=== PATIENT | female | born 1975 | race Caucasian/White ===

== ENCOUNTER 2017-11-20 07:21 | Emergency (ER) | payer OTHER ==
[2017-11-20 07:25] VITALS: TEMP 36.4; Ht 160 cm
[2017-11-20] MEDS ORDERED: MoRPHine SULFATE 4 MG/ML 1 ML CARP\\VIAL IV STA (07:54)
[2017-11-20] MEDS ORDERED: ONDANSETRON INJ 2 MG/ML 2 ML VIAL IV STA ×2 (07:54→08:50)
[2017-11-20] MEDS ORDERED: SODIUM CHLORIDE 0.9% 1000ML 1,000 ML IV STA (07:54)
[2017-11-20] MEDS ORDERED: MoRPHine SULFATE 4 MG/ML 1 ML CARP\\VIAL IV PRN (08:00)
[2017-11-20] MEDS ORDERED: OPTIRAY 320 IV PRN (08:15)
[2017-11-20 08:51] LABS: BASO % 0.5 %; BASO ABS # 0.04 K/uL (0-0.2); EOS % 2.9 %; EOS ABS # 0.23 K/uL (0-0.5); HEMATOCRIT 31.8 % (37-47); HEMOGLOBIN 9.5 g/dL (12.0-16.0); IG# 0.02 K/uL (0.00-0.02); LYMPH % 28.6 %; LYMPH ABS # 2.23 K/uL (1.2-3.4); MEAN CELL VOLUME 76.4 fL (80-100); MEAN CORPUSCULAR HEMOGLOBIN 22.8 pg (25-34); MEAN CORPUSCULAR HGB CONC 29.9 g/dl (32-36); MEAN PLATELET VOLUME 10.2 fL (7.4-10.4); MONO % 6.9 %; MONO ABS # 0.54 K/uL (0.11-0.59); NEUT % 60.8 %; NEUT ABS # 4.74 K/uL (1.4-6.5); PLATELET COUNT 269 K/uL (130-400); RED CELL DISTRIBUTION WIDTH CV 15.4 % (11.5-14.5)
[2017-11-20 09:02] LABS: PTT PATIENT 23.2 SECONDS (21.0-31.0)
[2017-11-20 09:10] LABS: ALBUMIN 3.4 gm/dl (3.4-5.0); ALT/SGPT 15 U/L (12-78); BLOOD UREA NITROGEN 7 mg/dl (7-18); CALCIUM 8.6 mg/dl (8.5-10.1); CARBON DIOXIDE 26 mmol/L (21-32); CREATININE 0.82 mg/dl (0.60-1.20); GLUCOSE 112 mg/dl (70-99); LIPASE 147 U/L (73-393); POTASSIUM 4.2 mmol/L (3.5-5.1); SODIUM 140 mmol/L (136-145)
[2017-11-20 09:13] LABS: ALKALINE PHOSPHATASE 64 U/L (45-117); AST/SGOT 10 U/L (15-37); TOTAL PROTEIN 6.9 gm/dl (6.4-8.2)
--- NOTE | 2017-11-20 10:13 | DIAGNOSTIC IMAGING REPORT ---
APPENDIX ULTRASOUND HISTORY: Right lower quadrant abdominal pain. COMPARISON: None. FINDINGS: Transabdominal scanning of the right lower quadrant was performed. The appendix was not identified. There are no fluid collections or masses within the right lower quadrant. IMPRESSION: Nonvisualization of the appendix. If persistent clinical suspicion for acute appendicitis, a CT is recommended. Electronically signed by: Arsenio De Leon M.D. 11/20/2017 10:11 AM Dictated Date/Time: 11/20/2017 10:11 AM
--- NOTE | 2017-11-20 10:13 | DIAGNOSTIC IMAGING REPORT ---
RENAL ULTRASOUND CLINICAL HISTORY: Right lower quadrant/right flank pain. COMPARISON STUDY: None. TECHNIQUE: Sonography of the kidneys and the urinary bladder was performed. FINDINGS: The right kidney measures 10.3 cm in maximal dimension and the left measures 10.6 cm. There is no hydronephrosis. Renal echogenicity, size and cortical thickness are normal. Both ureteral jets were identified. No calculi are identified by sonography. IMPRESSION: Normal renal ultrasound. No hydronephrosis. Electronically signed by: Arsenio De Leon M.D. 11/20/2017 10:12 AM Dictated Date/Time: 11/20/2017 10:12 AM
--- NOTE | 2017-11-20 10:44 | DIAGNOSTIC IMAGING REPORT ---
PELVIC ULTRASOUND CLINICAL HISTORY: Right lower quadrant/right flank pain. COMPARISON STUDY: None. TECHNIQUE: Transabdominal and transvaginal sonography of the pelvis was performed. FINDINGS: The uterus measures 7.4 x 4.5 x 3.1 cm. Endometrium measures 1 cm in thickness. The right ovary measures 3.1 x 2.1 x 2.2 cm and the left ovary measures 3.3 x 2.8 x 1.5 cm. There is color flow within each ovary. There may be slight increased number of peripheral follicles within the right ovary. There is no free fluid. IMPRESSION: Unremarkable pelvic ultrasound. Electronically signed by: Arsenio De Leon M.D. 11/20/2017 10:43 AM Dictated Date/Time: 11/20/2017 10:42 AM
--- NOTE | 2017-11-20 11:31 | DIAGNOSTIC IMAGING REPORT ---
CT OF THE ABDOMEN AND PELVIS WITH CONTRAST CLINICAL HISTORY: Abdominal pain. COMPARISON STUDY: Right lower quadrant ultrasound, renal ultrasound and pelvic ultrasound performed earlier today. TECHNIQUE: Following IV administration of 93 mL of Optiray-320, axial images of the abdomen and pelvis were obtained from the lung bases to the proximal femurs. Images were reviewed in the axial, sagittal, and coronal planes. IV contrast was administered without complication. A dose lowering technique was utilized adhering to the principles of ALARA. Oral contrast was administered. CT DOSE: 1394.84 mGy.cm FINDINGS: A few hepatic cysts are noted, the largest of which is within the lateral segment, measuring 2.2 cm. This may contain a thin septation. A 3.4 cm hypodense segment 6 lesion has nodular peripheral enhancement and is consistent with a hemangioma. The spleen, adrenal glands, kidneys and pancreas are normal. There is no evidence for a bowel obstruction. The appendix is normal. No hydronephrosis is present. There is no biliary ductal dilatation status post cholecystectomy. The ovaries are not enlarged. There are no suspicious osseous lesions. IMPRESSION: 1. No acute process within the abdomen or pelvis. Normal appendix. 2. No bowel obstruction. 3. 3.4 cm right hepatic lobe hemangioma. Several hepatic cysts. Electronically signed by: Arsenio De Leon M.D. 11/20/2017 11:29 AM Dictated Date/Time: 11/20/2017 11:22 AM
[2017-11-20] MEDS ORDERED: ONDA4TAB10 SL (11:59)
[2017-11-20] MEDS ORDERED: OXYC1TAB3 PO (11:59)
[2017-11-20] MEDS ORDERED: HYDROmorphone INJ 0.5 MG/0.5 ML SYR IV STA (12:00)
[2017-11-20 12:36] VITALS: BP 134/79; PULSE 78; O2SAT 98
--- NOTE | 2017-11-20 17:23 | EMERGENCY ROOM VISIT NOTE ---
History First contact with patient: 07:32 Chief Complaint: ABDOMINAL PAIN Stated Complaint: SEVERE ABD PAIN,NAUSEA History of Present Illness The patient is a 42 year old female who presents to the Emergency Room with complaints of lower central/right back, flank and right lower quadrant abdominal pain. The patient reports that she has had worsening discomfort for the past 2 days. Her reports that she was complaining of LEFT lower back pain last weekend during menstruation. She currently denies any left abdomen or left lower back pain. She reports feeling bloated, stating that her pants that she used to wear no longer fit. The patient did try some laxatives last night, and now has diarrhea. The laxatives only provided mild relief of her discomfort. She reports worsening pain with ambulation. She felt every bump while being transported to the emergency department this morning. The patient has a history of polycystic ovarian syndrome and endometriosis. The patient did have exploratory laparoscopy and 17 years of age when she was diagnosed with endometriosis. She also had a colonoscopy in 2002 with history of left lower quadrant abdominal pain. She reports that the colonoscopy was otherwise unremarkable. The patient is status post cholecystectomy. The patient denies . The patient currently rates her discomfort a 6 out of 10, and describes her pain now as a mostly constant pain with sharp pains in the previously described distribution with any movement. The patient has had nausea without vomiting. She has also had chills for the past 24 hours, but has not had an increased oral temperature/fever at home. Review of Systems HEENT: Denies dizziness, visual problems, hearing loss, tinnitus. Denies difficulty swallowing or oral lesions. PULMONARY: Denies cough, shortness of breath, sputum production or hemoptysis. CARDIOVASCULAR: Denies chest pain, palpitations, dyspnea on exertion, orthopnea or peripheral edema. GASTROINTESTINAL: See history of present illness. The patient denies bloody stool or mucus stools. GENITOURINARY: Denies dysuria, frequency, urgency or nocturia. NEUROLOGIC: Denies history of epilepsy, CVA, TIA or chronic headaches. MUSCULOSKELETAL: Denies history of joint tenderness/swelling. SKIN: Denies rashes or lesions. PSYCHIATRIC: Denies history of depression or mental illness. ENDOCRINE: Denies history of diabetes or thyroid disorders. Past Medical/Surgical History Medical Problems: (1) Bronchitis (2) Endometriosis (3) Endometriosis determined by laparoscopy (4) Peptic ulcer (5) Pneumonia (6) Polycystic ovarian syndrome Surgical Problems: (1) History of cholecystectomy (2) Status post reconstruction of anterior cruciate ligament Family History FH: cancer FH: diabetes mellitus FH: gallbladder disease FH: hypertension FH: kidney disease Social History Smoking Status: Never Smoker Alcohol Use: occasionally Marital Status: Occupation Status: employed Current/Historical Medications Scheduled Ondasetron Odt (Zofran Odt), 4 MG SL Q6H Scheduled PRN Oxycodone Ir (Roxicodone Ir), 1-2 TAB PO Q4H PRN for Pain Physical Exam Vital Signs Date Time Temp Pulse Resp B/P (MAP) Pulse Ox O2 Delivery O2 Flow Rate FiO2 11/20/17 12:36 78 18 134/79 98 11/20/17 10:46 71 18 120/63 98 Room Air 11/20/17 09:05 69 20 118/83 100 Room Air 11/20/17 07:25 36.4 87 18 130/88 98 Room Air Physical Exam CONSTITUTIONAL: Healthy and well nourished. Alert and oriented X 3 with positive affect. Patient appears in mild discomfort from pain. HEENT: Normocephalic, atraumatic. Pupils equal, round and reactive. No scleral icterus or conjunctival injection/pallor. NECK: Full active range of motion without discomfort. RESPIRATORY: Clear to auscultation bilaterally with no wheezing, crackles, rhonchi or stridor. CARDIOVASCULAR: Regular rate and rhythm with no murmurs, rubs or gallops. GASTROINTESTINAL: Bowel sounds present in all quadrants. Patient has a positive McBurney's point tenderness with mildly positive Rovsing sign. Positive heel tap. Positive obturator sign. Negative CVA tenderness. No abdominal rigidity, guarding or rebound. MUSCULOSKELETAL: Full range of motion of all joints without discomfort. INTEGUMENTARY: No rash or other significant dermatologic conditions noted. HEMATOLOGIC: No ecchymosis or petechiae noted. NEUROLOGIC: No focal neurologic deficits noted. Medical Decision & Procedures ER Provider Diagnostic Interpretation: Pelvic ultrasound does not show any obvious ovarian cysts/torsion or other acute intrapelvic findings. Radiologist report is as follows: PELVIC ULTRASOUND CLINICAL HISTORY: Right lower quadrant/right flank pain. COMPARISON STUDY: None. TECHNIQUE: Transabdominal and transvaginal sonography of the pelvis was performed. FINDINGS: The uterus measures 7.4 x 4.5 x 3.1 cm. Endometrium measures 1 cm in thickness. The right ovary measures 3.1 x 2.1 x 2.2 cm and the left ovary measures 3.3 x 2.8 x 1.5 cm. There is color flow within each ovary. There may be slight increased number of peripheral follicles within the right ovary. There is no free fluid. IMPRESSION: Unremarkable pelvic ultrasound. Retroperitoneal ultrasound RENAL ULTRASOUND CLINICAL HISTORY: Right lower quadrant/right flank pain. COMPARISON STUDY: None. TECHNIQUE: Sonography of the kidneys and the urinary bladder was performed. FINDINGS: The right kidney measures 10.3 cm in maximal dimension and the left measures 10.6 cm. There is no hydronephrosis. Renal echogenicity, size and cortical thickness are normal. Both ureteral jets were identified. No calculi are identified by sonography. IMPRESSION: Normal renal ultrasound. No hydronephrosis. Ultrasound of the appendix was not able to identify the appendix. Radiologist report is as follows: APPENDIX ULTRASOUND HISTORY: Right lower quadrant abdominal pain. COMPARISON: None. FINDINGS: Transabdominal scanning of the right lower quadrant was performed. The appendix was not identified. There are no fluid collections or masses within the right lower quadrant. IMPRESSION: Nonvisualization of the appendix. If persistent clinical suspicion for acute appendicitis, a CT is recommended. Enhanced CT of the abdomen and pelvis does not show any evidence for acute appendicitis, latest, bowel obstruction, diverticulitis or other emergent findings. Radiologist report is as follows: CT OF THE ABDOMEN AND PELVIS WITH CONTRAST CLINICAL HISTORY: Abdominal pain. COMPARISON STUDY: Right lower quadrant ultrasound, renal ultrasound and pelvic ultrasound performed earlier today. TECHNIQUE: Following IV administration of 93 mL of Optiray-320, axial images of the abdomen and pelvis were obtained from the lung bases to the proximal femurs. Images were reviewed in the axial, sagittal, and coronal planes. IV contrast was administered without complication. A dose lowering technique was utilized adhering to the principles of ALARA. Oral contrast was administered. CT DOSE: 1394.84 mGy.cm FINDINGS: A few hepatic cysts are noted, the largest of which is within the lateral segment, measuring 2.2 cm. This may contain a thin septation. A 3.4 cm hypodense segment 6 lesion has nodular peripheral enhancement and is consistent with a hemangioma. The spleen, adrenal glands, kidneys and pancreas are normal. There is no evidence for a bowel obstruction. The appendix is normal. No hydronephrosis is present. There is no biliary ductal dilatation status post cholecystectomy. The ovaries are not enlarged. There are no suspicious osseous lesions. IMPRESSION: 1. No acute process within the abdomen or pelvis. Normal appendix. 2. No bowel obstruction. 3. 3.4 cm right hepatic lobe hemangioma. Several hepatic cysts. Laboratory Results 11/20/17 08:34 Red Blood Count 4.16, Mean Corpuscular Volume 76.4, Mean Corpuscular Hemoglobin 22.8, Mean Corpuscular Hemoglobin Concent 29.9, Mean Platelet Volume 10.2, Neutrophils (%) (Auto) 60.8, Lymphocytes (%) (Auto) 28.6, Monocytes (%) (Auto) 6.9, Eosinophils (%) (Auto) 2.9, Basophils (%) (Auto) 0.5, Neutrophils # (Auto) 4.74, Lymphocytes # (Auto) 2.23, Monocytes # (Auto) 0.54, Eosinophils # (Auto) 0.23, Basophils # (Auto) 0.04 11/20/17 08:34 Test 11/20/17 00:00 11/20/17 08:34 Urine Color YELLOW Urine Appearance CLEAR (CLEAR) Urine pH 5.0 (4.5-7.5) Urine Specific [place] 1.013 (1.000-1.030) Urine Protein NEG (NEG) Urine Glucose (UA) NEG (NEG) Urine Ketones NEG (NEG) Urine Occult Blood NEG (NEG) Urine Nitrite NEG (NEG) Urine Bilirubin NEG (NEG) Urine Urobilinogen NEG (NEG) Urine Leukocyte Esterase NEG (NEG) Urine Test NEG (NEG) White Blood Count 7.80 K/uL (4.8-10.8) Red Blood Count 4.16 M/uL (4.2-5.4) Hemoglobin 9.5 g/dL (12.0-16.0) Hematocrit 31.8 % (37-47) Mean Corpuscular Volume 76.4 fL (80-100) Mean Corpuscular Hemoglobin 22.8 pg (25-34) Mean Corpuscular Hemoglobin Concent 29.9 g/dl (32-36) Platelet Count 269 K/uL (130-400) Mean Platelet Volume 10.2 fL (7.4-10.4) Neutrophils (%) (Auto) 60.8 % Lymphocytes (%) (Auto) 28.6 % Monocytes (%) (Auto) 6.9 % Eosinophils (%) (Auto) 2.9 % Basophils (%) (Auto) 0.5 % Neutrophils # (Auto) 4.74 K/uL (1.4-6.5) Lymphocytes # (Auto) 2.23 K/uL (1.2-3.4) Monocytes # (Auto) 0.54 K/uL (0.11-0.59) Eosinophils # (Auto) 0.23 K/uL (0-0.5) Basophils # (Auto) 0.04 K/uL (0-0.2) RDW Standard Deviation 43.0 fL (36.4-46.3) RDW Coefficient of Variation 15.4 % (11.5-14.5) Immature Granulocyte % (Auto) 0.3 % Immature Granulocyte # (Auto) 0.02 K/uL (0.00-0.02) Prothrombin Time 10.7 SECONDS (9.0-12.0) Prothromb Time International Ratio 1.0 (0.9-1.1) Activated Partial Thromboplast Time 23.2 SECONDS (21.0-31.0) Partial Thromboplastin Ratio 0.9 Anion Gap 6.0 mmol/L (3-11) Estimated GFR () 100.9 Estimated GFR (Non- 87.0 BUN/Creatinine Ratio 8.9 (10-20) Calcium Level 8.6 mg/dl (8.5-10.1) Total Bilirubin 0.4 mg/dl (0.2-1) Direct Bilirubin < 0.1 mg/dl (0-0.2) Aspartate Amino Transf (AST/SGOT) 10 U/L (15-37) Alanine Aminotransferase (ALT/SGPT) 15 U/L (12-78) Alkaline Phosphatase 64 U/L (45-117) Total Protein 6.9 gm/dl (6.4-8.2) Albumin 3.4 gm/dl (3.4-5.0) Lipase 147 U/L (73-393) The above labs were reviewed. Hemoglobin is 9.5, otherwise remaining labs were otherwise reviewed and grossly normal. Medications Administered Medications (Trade) Dose Ordered Sig/Trudi Route Start Time Stop Time Status Last Admin Dose Admin Morphine Sulfate (MoRPHine SULFATE INJ) 4 mg Q30M PRN IV 11/20/17 08:00 11/20/17 13:56 DC 11/20/17 11:12 4 MG Sodium Chloride 1,000 ml @ 999 mls/hr Q1H1M STAT IV 11/20/17 07:54 11/20/17 08:54 DC 11/20/17 08:12 999 MLS/HR Ondansetron HCl (Zofran Inj) 4 mg NOW STAT IV 11/20/17 07:54 11/20/17 07:59 DC 11/20/17 08:12 4 MG Morphine Sulfate (MoRPHine SULFATE INJ) 4 mg NOW STAT IV 11/20/17 07:54 11/20/17 07:59 DC 11/20/17 08:12 4 MG Ondansetron HCl (Zofran Inj) 4 mg NOW STAT IV 11/20/17 08:50 11/20/17 08:51 DC 11/20/17 09:05 4 MG Hydromorphone HCl (Dilaudid Inj) 0.5 mg NOW STAT IV 11/20/17 12:00 11/20/17 12:01 DC 11/20/17 12:21 0.5 MG ED Course Patient history and physical exam were performed. Nurse's notes were reviewed. Vital signs were reviewed and were normal. IV access was established, and labs were drawn. The patient was hydrated with normal saline, and received IV morphine and Zofran for pain and nausea. Labs were reviewed to show no leukocytosis or other significant lab abnormalities. The patient does have a hemoglobin of 9.5. The patient reports a prior history of anemia. Retroperitoneal, pelvic and appendix ultrasound were all performed and were normal. Enhanced CT of the abdomen and pelvis was also performed to show no acute findings. The case was further discussed with Dr. Narayanan, ED attending physician, who agrees with workup and outpatient plan of care. The patient was also advised of her laboratory and normal imaging studies. The patient was encouraged to follow-up with her PCP for further reevaluation and management within the next few days. The patient was provided prescriptions for OxyIR and Zofran. She was encouraged to minimize OxyIR as much as possible to avoid constipation. She was encouraged to return to the emergency department as needed for any progressively worsening pain, persistent vomiting, developing fever or other concerning symptoms. The patient was happy with plan of care, and rated her discomfort a 3 out of 10 at the conclusion of my exam. Medical Decision Patient presents to the emergency department with rather severe right lower quadrant, right lower back and right flank pain. Her workup today does not show evidence for UTI, hydronephrosis, bowel obstruction, appendicitis, diverticulitis, cholecystitis, hepatitis, pancreatitis, ovarian cyst/torsion, significant endometrial proliferation or other acute findings. I do not suspect cardiopulmonary etiology. Musculoskeletal cause was also entertained. Herpes zoster is also a possibility. [place] Drug Monitoring Program Search Results: patient reviewed within database, no issues identified Medication Reconcilliation Current Medication List: was personally reviewed by me Blood Pressure Screening Patient's blood pressure: Normal blood pressure Impression Primary Impression: Right lower quadrant abdominal pain Additional Impressions: Right flank pain Lower back pain Departure Information Prescriptions Ondasetron Odt (ZOFRAN ODT) 4 Mg Tab 4 MG SL Q6H for Nausea, #10 TAB Prov: Melquiades Cortez PA 11/20/17 Oxycodone Ir (Roxicodone Ir) 5 Mg Tab 1-2 TAB PO Q4H Y for Pain, #15 TAB For Initial Treatment Prov: Melquiades Cortez PA 11/20/17 Referrals Yasmine Corona (PCP) Patient Instructions My [facility] Problem Qualifiers Additional Impressions: Lower back pain Chronicity: acute Back pain laterality: right Sciatica presence: without sciatica Qualified Codes: M54.5 - Low back pain
== END 2017-11-20 12:39 | disposition home or self-care (01) ==
LOC: C.EDB 07:23
DX: R10.31 Right lower quadrant pain (principal); M54.5 Low back pain; R19.7 Diarrhea, unspecified; N80.9 Endometriosis, unspecified; E28.2 Polycystic ovarian syndrome; Z87.01 Personal history of pneumonia (recurrent); Z90.49 Acquired absence of other specified parts of digestive tract; Z98.890 Other specified postprocedural states; Z83.3 Family history of diabetes mellitus; Z82.49 Family history of ischemic heart disease and other diseases of the circulatory system